=== PATIENT | female | born 1975 | race Caucasian/White ===

== ENCOUNTER 2022-12-22 15:51 | Emergency (ER) | payer BC ==
[~2022-12-22] VITALS: Ht 157.5 cm; Wt 57.6 kg
[2022-12-22] MEDS ORDERED: ONDANSETRON ODT8 MG PO (18:41)
[2022-12-22] MEDS ORDERED: PEPCID AC20 MG PO (18:41)
[2022-12-22] MEDS ORDERED: LEVSIN/SL0.125 MG SL (18:42)
== END 2022-12-22 18:46 | disposition home or self-care (01) ==
LOC: ER 15:51
DX: R11.0 Nausea (principal); R10.84 Generalized abdominal pain